=== PATIENT | male | born 1965 | race Caucasian/White ===

== ENCOUNTER 2022-12-13 09:13 | Outpatient (CLI) | payer OTHER | END 2022-12-13 09:54 | disposition home or self-care (01) | LOC: LAB 09:13 | DX: R73.01 Impaired fasting glucose (principal); D64.9 Anemia, unspecified; R30.0 Dysuria; E78.2 Mixed hyperlipidemia; N40.0 Benign prostatic hyperplasia without lower urinary tract symptoms; K92.1 Melena ==